=== PATIENT | female | born 2000 | race Caucasian/White ===

== ENCOUNTER 2021-08-01 13:32 | Outpatient (RCR) | payer OTHER, SELFPAY ==
[2021-07-29 13:06] LABS: Hematocrit 37.6 % (37.0-47.0); Hemoglobin 12.6 g/dL (12.0-15.0)
[2021-07-29 13:14] LABS: Glucose 1 Hour PP 50gm Dose 104 mg/dL
[2021-07-29 14:02] LABS: HIV 1/2 Ab P24 Ag Result Negative (Negative)
[2021-08-01] MEDS: RHO(D) IMMUNE GLOBULIN 300 MCG/2 ML SYRINGE IM (09:44)
== END 2021-08-01 14:00 | disposition home or self-care (01) ==
LOC: ANHLAB 13:32
PROVIDERS: Visit Provider Advanced Practice Midwife
DX: Z11.4 Encounter for screening for human immunodeficiency virus [HIV] (principal); Z29.13 Encounter for prophylactic Rho(D) immune globulin; O36.0130 Maternal care for anti-D [Rh] antibodies, third trimester, not applicable or unspecified; Z3A.00 Weeks of gestation of pregnancy not specified
CPT/HCPCS: 36415; 82947; 85014; 85018; 85461; 86703; 90384; 96372; G0432; J2790

== ENCOUNTER 2021-09-30 09:22 | Inpatient (IN) | payer OTHER, SELFPAY ==
[2021-09-30] VITALS (83 sets, daily range): BP systolic 97–131; BP diastolic 43–115; PULSE 46–180; RESP 18; TEMP 36.1–36.6; O2SAT 94–100
--- OUTSIDE RECORDS SUMMARY | 2021-09-30 09:27 | XMS_ITS | Encounter Summary ---
:2000 Author Reason for Visit None recorded. Assessment and Plan 1. Chronic hypertension complicating AN D/OR reason for care during ? non-stress test Discussion Note: None recorded.Patient educational handouts: No information available. Plan of Care Reminders Provider Appointments U/[facility] OB BPP 10/07/2021 10:00AM Ultrasound, TECH ? [place]any 10/07/2021 10:30AM Dara casiano CNM ? Nst 10/07/2021 9:30AM Nst, , EQUIP ? Induction 10/09/2021 12:00AM Dara casiano CNM Lab None recorded. ? ? Referral None recorded. ? ? Procedures None recorded. ? ? Surgeries None recorded. ? ? Imaging Non-stress Test 08/21/2021 [place] Medications Name Start Date ? ? ondansetron 8 mg disintegrating tablet ? Place 1 tablet twice a day by translingual route as n eeded. ondansetron HCl 8 mg tablet ? TAKE 1 TABLET BY MOUTH TWICE DAILY NEEDED ? sertraline 50 mg tablet ? TAKE 1 TABLET BY MOUTH EVERY DAY Medications Administered None recorded. Vitals None recorded. Results Lab Results None recorded. Allergies Code Code System Name Reaction Severity Onset NKDA ? ? ? Problems Name Status Onset Date Source ? Active 03/30/2021 ? Chronic Hypertension Complicating AND/OR Reason for Care Active 03/30/2021 ? During Procedures Date Name Performed by ? 08/21/2021 Non-stress Test [place] [address] [place] [address]
--- OUTSIDE RECORDS SUMMARY | 2021-09-30 09:27 | XMS_ITS | Encounter Summary ---
:2000 Author Reason for Visit None recorded. Assessment and Plan 1. -induced hypertension ? non-stress test Discussion Note: None recorded.Patient educational handouts: No information available. Plan of Care Reminders Provider Appointments [facility] OB BPP 10/07/2021 10:00AM Ultrasound, TECH ? Xany 10/07/2021 10:30AM Dara casiano, CNM ? Nst 10/07/2021 9:30AM Nst, , EQUIP ? Induction 10/09/2021 12:00AM Dara casiano CNM Lab None recorded. ? ? Referral None recorded. ? ? Procedures None recorded. ? ? Surgeries None recorded. ? ? Imaging Non-stress Test 08/27/2021 [place] Medications Name Start Date ? ? ondansetron [...] Name Performed by ? 08/21/2021 Non-stress Test [place] [address] [place] [address]
--- OUTSIDE RECORDS SUMMARY | 2021-09-30 09:27 | XMS_ITS | Encounter Summary ---
[...] None recorded. ? ? Imaging Non-stress Test 09/18/2021 [place] Medications Name Start Date ? ? ondansetron [...] Name Performed by ? 08/21/2021 Non-stress Test [place] [address] [place] [address]
--- OUTSIDE RECORDS SUMMARY | 2021-09-30 09:27 | XMS_ITS | Encounter Summary ---
:2000 Author Reason for Visit None recorded. Assessment and Plan 1. Chronic hypertension complicating AN D/OR reason for care during ? US, obstetric, follow-up Discussion Note: None recorded.Patient educational handouts: No information available. Plan of Care Reminders Provider Appointments [facility] OB BPP 10/07/2021 Ultrasound, SHEILA H 10:00AM ? Xany 10/07/2021 Dara Fulton CNM 10:30AM ? Nst 10/07/2021 9:30AM Nst, , EQUIP ? Induction 10/09/2021 Dara Fulton CNM 12:00AM Lab None recorded. ? ? Referral None recorded. ? ? Procedures None recorded. ? ? Surgeries None recorded. ? ? Imaging US, Obstetric, Follow-up 08/27/2021 [place] Medications Name Start Date ? ? ondansetron [...]
--- OUTSIDE RECORDS SUMMARY | 2021-09-30 09:27 | XMS_ITS | Encounter Summary ---
:2000 Author Reason for Visit None recorded. Assessment and Plan 1. Chronic hypertension complicating AN D/OR reason for care during ? US, obstetric, biophysical profile + non-stress test Discussion Note: None recorded.Patient educational handouts: No information available. Plan of Care Reminders Provider Appointments U/S OB BPP 10/07/2021 Ultrasound, SHEILA H 10:00AM ? Xany 10/07/2021 Dara Fulton CNM 10:30AM ? Nst 10/07/2021 Nst, , EQUIP 9:30AM ? Induction 10/09/2021 IDA BaronM 12:00AM Lab None recorded. ? ? Referral None recorded. ? ? Procedures None recorded. ? ? Surgeries None recorded. ? ? Imaging US, Obstetric, Biophysical 09/18/2021 [place] Profile + Non-stress Test Medications Name Start Date ? ? ondansetron [...]
--- OUTSIDE RECORDS SUMMARY | 2021-09-30 09:27 | XMS_ITS | Encounter Summary ---
:2000 Author Reason for Visit OB visit OB [id number] EDC 10/15/2021 LMP 12/29/2020 Assessment and Plan Assessment Note Patient is _33__weeks . Discuss ed plan. 1. Routine care Discussion Note: None recorded.Patient educational handouts: No [...] ? Surgeries None recorded. ? ? Imaging None recorded. ? ? Medications Name Start Date ? ? ondansetron 8 mg disintegrating tablet ? Place 1 tablet twice a day by translingual route as n eeded. ondansetron HCl 8 mg tablet ? TAKE 1 TABLET BY MOUTH TWICE DAILY NEEDED ? sertraline 50 mg tablet ? TAKE 1 TABLET BY MOUTH EVERY DAY Medications Administered None recorded. Vitals Height Weight BMI Blood Pressure 5 ft 8 in 176 lbs 26.8 kg/m2 137/78 mm[Hg] Results Lab Results None recorded. Allergies Code Code System Name Reaction Severity Onset NKDA ? ? ? Problems Name Status Onset Date Source ? Active 03/30/2021 ? Chronic Hypertension Complicating AND/OR Reason for Care Active 03/30/2021 ? During Procedures Date Name Performed by
--- OUTSIDE RECORDS SUMMARY | 2021-09-30 09:27 | XMS_ITS ---
:2000 Author Care Team Providers Name Role Phone LeonStephenbreann Quinones Primary Care Provider Unavailable Allergies Code Code System Name Reaction Severity Status Onset NKDA ? Medications Name Status Start Date Stop Date ? ? dexamethasone 1 mg tablet Completed 10/15/20152020 take 1 pill at 11pm the night before and 8 am blood draw Lo Loestrin Fe 1 mg-10 mcg (24)/10 mcg (2) tablet Completed 10/15/2015 10/15/2015 take 1 tablet by oral route every day nitrofurantoin monohydrate/macrocrystals 100 mg Completed ? 07/02/2021 capsule ondansetron 4 mg disintegrating tablet Completed ? 07/02/2021 Place 1 tablet every 4-6 hours by translingual route as needed. ondansetron 8 mg disintegrating tablet Active ? Not available ondansetron HCl 8 mg tablet Active ? Not available Ortho-Cyclen (28) 0.25 mg-35 mcg tablet Completed 11/08/19 18 03/03/2021 TAKE 1 TABLET BY ORAL ROUTE EVERY DAY Active ? Not available metoclopramide 5 mg tablet Active ? Not a vailable sertraline 50 mg tablet Active ? Not avai lable Vitamin D2 1,250 mcg (50,000 unit) capsule Completed 10/2003/03/2021 take 1 capsule by oral route every week Problems Name Status Onset Date Source ? Amenorrhea Unknown 10/15/2015 History Surveillance of Contraception Unknown 02/10/[address] Concept Unknown 03/31/[address] Concept Unknown 03/31/2017 History Active 03/30/2021 ? Chronic Hypertension Complicating AND/OR Reason for Active 03/30/2021 ? Care During Procedures Date Name Performed by ?
--- OUTSIDE RECORDS SUMMARY | 2021-09-30 09:27 | XMS_ITS | Encounter Summary ---
[...] None recorded. ? ? Imaging Non-stress Test 09/09/2021 [place] Medications Name Start Date ? ? ondansetron 8 mg disintegrating tablet ? Place 1 tablet twice a day by translingual route as n eeded. ondansetron HCl 8 mg tablet ? TAKE 1 TABLET BY MOUTH TWICE DAILY NEEDED ? sertraline 50 mg tablet ? TAKE 1 TABLET BY MOUTH EVERY DAY Medications Administered None recorded. Vitals Blood Pressure 130/64 mm[Hg] Results Lab Results None recorded. Allergies Code Code System Name Reaction Severity Onset NKDA ? ? ? Problems Name Status Onset Date Source ? Active 03/30/2021 ? Chronic Hypertension Complicating AND/OR Reason for Care Active 03/30/2021 ? During Procedures Date Name Performed by ? 08/21/2021 Non-stress Test [place] [address]
--- OUTSIDE RECORDS SUMMARY | 2021-09-30 09:27 | XMS_ITS | Encounter Summary ---
[...] None recorded. ? ? Imaging Non-stress Test 09/02/2021 [place] Medications Name Start Date ? ? ondansetron [...] Name Performed by ? 08/21/2021 Non-stress Test [place] [address] [place] [address]
--- OUTSIDE RECORDS SUMMARY | 2021-09-30 09:27 | XMS_ITS | Encounter Summary ---
:2000 Author Reason for Visit OB visit OB [id number] EDC 10/15/2021 LMP 12/29/2020 Assessment and Plan 1. Routine care Discussion Note: None recorded.Patient [...] BMI Blood Pressure 5 ft 8 in 174 lbs 26.5 kg/m2 113/68 mm[Hg] Results Lab Results None recorded. Allergies Code Code System Name Reaction Severity Onset NKDA ? ? ? Problems Name Status Onset Date Source ? Active 03/30/2021 ? Chronic Hypertension Complicating AND/OR Reason for Care Active 03/30/2021 ? During Procedures None recorded. Vaccine List None recorded. Social History Tobacco Smoking Status Never Smoker What type of diet are you following? REGULAR
--- OUTSIDE RECORDS SUMMARY | 2021-09-30 09:27 | XMS_ITS | Encounter Summary ---
:2000 Author Reason for Visit OB visit ob [id number] edc 10/15/2021 lmp 12/29/2020 Assessment and Plan Assessment Note Patient is 32___weeks . Discuss ed plan. 1. Routine care [...] BMI Blood Pressure 5 ft 8 in 172 lbs 26.2 kg/m2 113/68 mm[Hg] Results Lab Results None recorded. Allergies Code Code System Name Reaction Severity Onset NKDA ? ? ? Problems Name Status Onset Date Source ? Active 03/30/2021 ? Chronic Hypertension Complicating AND/OR Reason for Care Active 03/30/2021 ? During Procedures Date Name Performed by
--- OUTSIDE RECORDS SUMMARY | 2021-09-30 09:27 | XMS_ITS | Encounter Summary ---
:2000 Author Reason for Visit None recorded. Assessment and Plan 1. Chronic hypertension complicating AN D/OR reason for care during ? US, obstetric, biophysical profile + non-stress test Discussion Note: None recorded.Patient educational handouts: No information available. Plan of Care Reminders Provider Appointments U/S OB BPP 10/07/2021 Ultrasound, SHEILA H 10:00AM ? Xany 10/07/2021 Dara uFlton CNM 10:30AM ? Nst 10/07/2021 Nst, , EQUIP 9:30AM ? Induction 10/09/2021 IDA BaronM 12:00AM Lab None recorded. ? ? Referral None recorded. ? ? Procedures None recorded. ? ? Surgeries None recorded. ? ? Imaging US, Obstetric, Biophysical 09/02/2021 [place] Profile + Non-stress Test Medications [...]
--- OUTSIDE RECORDS SUMMARY | 2021-09-30 09:27 | XMS_ITS | Encounter Summary ---
[...] recorded. ? ? Imaging US, Obstetric, Follow-up 09/23/2021 [place] Medications Name Start Date ? [...]
--- OUTSIDE RECORDS SUMMARY | 2021-09-30 09:27 | XMS_ITS | Encounter Summary ---
:2000 Author Reason for Visit OB visit OB [id number] EDC 10/15/2021 LMP 12/29/2020 Assessment and Plan Assessment Note Patient is __25_weeks . Discuss ed plan. 1. Routine care [...] BMI Blood Pressure 5 ft 8 in 173 lbs 26.3 kg/m2 123/73 mm[Hg] Results Lab Results None recorded. Allergies Code Code System Name Reaction Severity Onset NKDA ? ? ? Problems Name Status Onset Date Source ? Active 03/30/2021 ? Chronic Hypertension Complicating AND/OR Reason for Care Active 03/30/2021 ? During Procedures Date Name Performed by
--- OUTSIDE RECORDS SUMMARY | 2021-09-30 09:27 | XMS_ITS | Encounter Summary ---
[...] recorded. ? ? Imaging US, Obstetric, Biophysical 09/09/2021 [place] Profile + Non-stress Test Medications [...]
--- OUTSIDE RECORDS SUMMARY | 2021-09-30 09:27 | XMS_ITS | Encounter Summary ---
:2000 Author Reason for Visit None recorded. Assessment and Plan 1. Benign essential hypertension compli cating , childbirth and the puerperium - not delivered ? non-stress test Discussion Note: None recorded.Patient [...] None recorded. ? ? Imaging Non-stress Test 09/23/2021 [place] Medications Name Start Date ? ? ondansetron [...] During Procedures Date Name Performed by ? 08/27/2021 US, Obstetric, Follow-up [place] [address]
--- OUTSIDE RECORDS SUMMARY | 2021-09-30 09:27 | XMS_ITS | Encounter Summary ---
:2000 Author Reason for Visit OB visit OB [id number] EDC 10/15/2021 LMP 12/29/2020 Assessment and Plan Assessment Note Patient is __36_weeks . Discuss ed plan. 1. Routine care [...] ft 8 in 176 lbs 26.8 kg/m2 111/75 mm[Hg] Results Lab Results None recorded. Allergies Code Code System Name Reaction Severity Onset NKDA ? ? ? Problems Name Status Onset Date Source ? Active 03/30/2021 ? Chronic Hypertension Complicating AND/OR Reason for Care Active 03/30/2021 ? During Procedures Date Name Performed by
--- NOTE | 2021-09-30 10:02 | LDADM ---
This patient, Alisson Ulloa, was admitted to Labor/Delivery/Recovery 107 on 09/30/21 at 09:22. Plans for labor, pain management and were discussed with patient. Patient/family oriented to hospital policies and general routines including ID bracelet, bed and alarms, visiting hours, pain management, procedures, bathroom and other care routines, personal items, smoking policy, room service/diet and guest tray routines, security routines, and visiting hours. Patient/Family are encouraged to report perceived risks to care and to ask questions if they do not understand what they are told or what they should do. See OBIX for further documentation.
[2021-09-30 10:21] LABS: Basophils Absolute Auto 0.1 K/mm3 (0.0-0.1); Basophils Percent Auto 0.4 % (0.2-1.2); Eosinophils Absolute Auto 0.3 K/mm3 (0-0.3); Eosinophils Percent Auto 2.9 % (0-4.4); Hematocrit 40.4 % (37.0-47.0); Immature Granulocyte Absolute 0.08 K/mm3 (0.00-0.031); Immature Granulocyte Percent A 0.7 % (0-0.5); Lymphocytes Absolute Auto 1.74 K/mm3 (0.9-3.2); Lymphocytes Percent Auto 15.1 % (18.3-44.2); Mean Corpuscular HGB Conc 34.7 g/dl (32-36); Mean Corpuscular Hemoglobin 30.5 pg (26-34); Mean Platelet Volume 11.1 fl (7.4-10.4); Monocytes Absolute Auto 0.7 K/mm3 (0.1-0.6); Monocytes Percent Auto 5.8 % (2.6-8.5); Neutrophils Absolute Auto 8.7 K/mm3 (1.3-6.7); Neutrophils Percent Auto 75.1 % (45.5-73.1); Platelet Count Result 264 k/mm3 (150-375); Red Blood Count 4.59 M/mm3 (4.2-5.4); Red Cell Distribution Width 13.3 % (11.5-14.5); White Blood Count 11.5 K/mm3 (4.5-10.0)
[2021-09-30] MEDS: OXYTOCIN 30 UNITS/NS 500 ML 30 UNITS/500 ML BAG IV CONT (14:27)
[2021-09-30] MEDS: AMPICILLIN 2 GM/NS 100 ML 2 GM/100 ML BAG IVPB (14:27)
[2021-09-30] MEDS: LACTATED RINGERS 1,000 ML 125 ML IV CONT ×2 (14:27→19:40)
--- NOTE | 2021-09-30 17:42 | WPDANESEPP ---
Anes - Eval Pre Procedure Procedure: labor epidural Date/Time: 09/30/21 17:42 Surgeon: ayla Pre Op Diagnosis: induction Patient Data Age: 21 Gender: F Height: Weight: Last Vital Signs Temp 36.1 C L 09/30/21 15:17 Pulse 71 09/30/21 17:01 BP 123/73 09/30/21 17:01 O2 Del Method Room Air 09/30/21 10:01 Allergies Allergy/AdvReac Type Severity Reaction Status Date / Time No Known Allergies Allergy Verified 09/19/21 15:42 Home Medications Medication Instructions Recorded Confirmed Type ondansetron HCl 8 mg tablet 8 mg PO Q8H PRN Nausea And Vomiting 09/19/21 09/30/21 History vit no.95-ferrous 1 tablet PO DAILY 09/19/21 09/30/21 History fumarate 28 mg-folic acid 800 mcg tablet () sertraline 50 mg tablet 50 mg PO DAILY 09/19/21 09/30/21 History Laboratory Tests 09/30/21 09/30/21 09/30/21 09:52 09:52 09:52 WBC 11.5 K/mm3 H K/mm3 (4.5-10.0) RBC 4.59 M/mm3 M/mm3 (4.2-5.4) Hgb 14.0 g/dL g/dL (12.0-15.0) Hct 40.4 % % (37.0-47.0) MCV 88.0 fl fl (80-100) MCH 30.5 pg pg (26-34) MCHC 34.7 g/dl g/dl (32-36) RDW 13.3 % % (11.5-14.5) Plt Count 264 k/mm3 k/mm3 (150-375) MPV 11.1 fl H fl (7.4-10.4) Immature Gran % (Auto) 0.7 % H % (0-0.5) Neut % (Auto) 75.1 % H % (45.5-73.1) Lymph % (Auto) 15.1 % L % (18.3-44.2) [place] % (Auto) 5.8 % % (2.6-8.5) Eos % (Auto) 2.9 % % (0-4.4) Baso % (Auto) 0.4 % % (0.2-1.2) Lymph # (Auto) 1.74 K/mm3 K/mm3 (0.9-3.2) [place] # (Auto) 0.7 K/mm3 H K/mm3 (0.1-0.6) Eos # (Auto) 0.3 K/mm3 K/mm3 (0-0.3) Baso # (Auto) 0.1 K/mm3 K/mm3 (0.0-0.1) Abs Immat Gran (auto) 0.08 K/mm3 H K/mm3 (0.00-0.031) Absolute Neuts (auto) 8.7 K/mm3 H K/mm3 (1.3-6.7) Absolute Nucleated RBC 0.0 K/mm3 K/mm3 (0.0-0.012) Nucleated RBC % 0.0 % % (0.0-0.2) RPR Pending Blood Type AB Negative Antibody Screen Positive Antibody Identification Passive Due to RH Imm Glob Antigen Identification TNP LUIS EDUARDO, IgG Interpret Not Performed LUIS EDUARDO, Poly Interpret Negative LUIS EDUARDO, Complement Interp Not Performed Patient hx anesthesia problems: none Family hx anesthesia problems: none Results Review: All pre-operative results and documents have been reviewed as part of the pre-operative evaluation. [facility] Family History Family History (Updated 09/19/21 @ 15:45 by Campbell Foley RN) Father Hypertension Grandparent Diabetes mellitus Social History Social History Smoking status: Never smoker Second hand tobacco smoke exposure: No Spiritual care concerns: No Exam Day of Procedure 09/30/21 17:42
[2021-09-30] MEDS: AMPICILLIN 1 GM/NS 50 ML 1 GM/50 ML BAG IVPB ×2 (18:33→22:15)
[2021-10-01] VITALS (51 sets, daily range): BP systolic 78–147; BP diastolic 45–126; PULSE 48–224; RESP 16–18; TEMP 36.1–36.9; O2SAT 99–100; BMI 26.8
[2021-10-01] MEDS: LACTATED RINGERS 1,000 ML 125 ML IV CONT ×2 (02:19→07:46)
[2021-10-01] MEDS: AMPICILLIN 1 GM/NS 50 ML 1 GM/50 ML BAG IVPB ×2 (02:24→06:13)
--- NOTE | 2021-10-01 07:10 | WPDHPUPDATE1 ---
History and Physical Update Update Date/Time: 10/01/21 this patient is a 21-year-old 1 at 37 weeks gestation who was induced for chronic hypertension . She is 9+ cm dilated. She was induced with Pitocin. Rupture membranes was just performed. This clear fluid. We expect a vaginal shortly. There is reassuring status. History and Physical has been reviewed, including an updated exam of the patient. There are NO changes in the patient's condition. Risks, benefits, and alternatives have been discussed and questions answered. Patient agrees to proceed with procedure.
[2021-10-01] MEDS: ONDANSETRON INJ 4 MG/2 ML VIAL IV PUSH (07:52)
--- NOTE | 2021-10-01 08:31 | PM.OBPRVD ---
OB - Delivery Note Procedure Events: Chronic Hypertension Induction method: AROM and Per Pitocin Protocol Delivery monitor: External FHT and External Uterine Route of delivery: Prior to decision for section, ACOG/SMFM labor guidelines were considered and discussed with the patient and staff. Decision made to proceed with the section.: No Episiotomy description: None Laceration Description: Perineal - 2nd Degree Delivery repair: vicryl Specimen: Yes Quantitative Blood Loss (ml): 350 Anesthesia type: Epidural Disposition: Floor Baby Time of : 08:19 Weeks of gestation at delivery: 38 Infant gender: Male Weight (pounds): 6 Weight (ounces): 14 score one minute: 9 score five minutes: 9
[2021-10-01] MEDS: OXYTOCIN 30 UNITS/NS 500 ML 30 UNITS/500 ML BAG 125 UNITS IV CONT (08:46)
[2021-10-01] MEDS: ACETAMINOPHEN 325 MG TABLET 650 MG PO (10:44)
[2021-10-01 10:59] LABS: Rapid Plasma Reagin Non-Reactive (NonReactive)
--- NOTE | 2021-10-01 11:16 | OBPPTRN ---
Patient transferred to post room # 291 via wheelchair. Oriented to unit, room, information board, rooming in, admission packet and security measures. Patient verbalizes understanding.
[2021-10-01] MEDS: TETANUS,DIPHTHERIA,AC PERTUSSIS ADULT (0.5 ML) BOOSTRIX IM (16:04)
[2021-10-01] MEDS: DOCUSATE SODIUM 100 MG CAPSULE PO (16:04)
[2021-10-02 05:32] LABS: Hematocrit 34.1 % (37.0-47.0); Hemoglobin 11.5 g/dL (12.0-15.0)
--- NOTE | 2021-10-02 08:05 | WPDANLDPN2 ---
Anes-Prog Note L&D Date/Time: 10/02/21 08:05 Neuro status: Neuro function grossly intact. Vital Signs: Last Vital Signs Temp 36.8 C 10/01/21 22:45 Pulse 71 10/01/21 22:45 Resp 16 10/01/21 22:45 BP 109/64 10/01/21 22:45 Pulse Ox 99 10/01/21 22:45 O2 Del Method Room Air 09/30/21 10:01 Pain score (VAS): 0 I/O: Intake & Output 10/01/21 10/02/21 10/02/21 23:59 07:59 15:59 Intake Total 500 Balance 500 Patient feedback: Patient satisfied with anesthetic care.
--- NOTE | 2021-10-02 08:08 | PM.OBPNVD ---
OB - PN: Subj Subjective Date/time seen: 10/02/21 08:08 Patient comments: no complaints, pain well controlled, incisional pain, tolerating diet and flatus present OB - PN: Obj Data Labs CBC & Chem 7: 10/02/21 04:36 Labs: Laboratory Results - last 24 hr 09/30/21 10/02/21 09:52 04:36 Hgb 11.5 L Hct 34.1 L RPR Non-reactive OB - PN A/P Plan day: 1 Plan: routine care Comments: No problems, routine care Time Spent With Patient Time: Total time spent is greater than 50% in coordination of care (as documented) at patient's floor/unit and/or counseling patient: Exam Const: General: comfortable, no acute distress and alert Resp: Effort & Inspection: normal respiratory effort Auscultation: no crackles, no rales and no rhonchi Cardio: Rate: regular rate Heart sounds: no click, no murmurs and no rubs GI: Inspection: non-distended GI Palp: No Tenderness to palpation present (GI) Auscultation: normal bowel sounds Other: Incision - CDI Extrem: General: normal to inspection, no pedal edema and no calf tenderness
--- NOTE | 2021-10-02 08:09 | P.DS_ITS ---
DS: Admitting Diagnosis Discharge Date 10/02/21 Admitting Diagnosis term OB - DS: Summary OB Procedures : None OB Procedures Intrapartum: Spontaneous Vag Delivery OB Procedures: : None Time Spent with Patient Time attestation: Total time spent providing and/or coordinating discharge services: DS: Data Data Completed and Pending Pending studies at discharge: Pending at discharge 10/01/21 08:44 Surgical [PTH] Routine Labs on day of discharge: Labs from last 24 hours 10/02/21 09/30/21 04:36 09:52 Hgb 11.5 L Hct 34.1 L RPR Non-reactive Discharge Plan Discharge Discharging Clinician: Soni Quintero Patient Disposition: Home, Self-Care Activity: pelvic rest Diet: regular Patient Instructions: Antibiotic Form Stand Alone Forms: General Discharge Information Follow-up/Referrals: Soni Quinetro MD [Physician] - Discharge Medications: Continued ondansetron HCl [Zofran] 8 mg Tablet 8 mg PO Q8H PRN (Reason: Nausea And Vomiting) sertraline 50 mg Tablet 50 mg PO DAILY PNV cmb#95-ferrous fumarate-FA [] 28 mg iron- 800 mcg Tablet 1 tablet PO DAILY Date of admission: 09/30/21 09:22 Primary Care Provider: PHYSICIAN,BEHAVIORAL HEALTH CONSULTANT Admitting Provider: Mehnaz Mcdonald Attending physician on admission: Mehnaz Mcdonald Condition: Stable
[2021-10-02] MEDS: IBUPROFEN 600 MG TABLET PO (08:33)
[2021-10-02] MEDS: SERTRALINE HCL 50 MG TABLET PO (08:33)
[2021-10-02] MEDS: DOCUSATE SODIUM 100 MG CAPSULE PO (08:33)
[2021-10-02 08:40] VITALS: BP 119/69; PULSE 55; RESP 18; TEMP 36.6; O2SAT 99
[2021-10-05 09:58] VITALS: BP 128/79; PULSE 70; RESP 20; TEMP 37.1; O2SAT 98
== END 2021-10-02 12:08 | disposition home or self-care (01) | DRG 560 ==
LOC: ANHOB2 10-02 11:23 → ANHLDR 10-05 09:47 → ANHOB2 10-05 09:47
PROVIDERS: Admitting Provider Obstetrics & Gynecology; Visit Provider Obstetrics & Gynecology
DX: O10.92 Unspecified pre-existing hypertension complicating childbirth (principal); Z37.0 Single live birth; Z3A.38 38 weeks gestation of pregnancy; O99.824 Streptococcus B carrier state complicating childbirth; O36.8330 Maternal care for abnormalities of the fetal heart rate or rhythm, third trimester, not applicable or unspecified; O70.1 Second degree perineal laceration during delivery
CPT/HCPCS: 36415; 85014; 85018; 85025; 86592; 86850; 86880; 86900; 86901; 86902; 88307; 90715; A9270; J0290; J2405; J2590; J2795; J7120